=== PATIENT | female | born 2000 | race Caucasian/White ===

== ENCOUNTER 2022-09-06 10:02 | Emergency (ER) | payer MEDICAID, OTHER ==
--- NOTE | 2022-09-06 11:30 | NUR ---
NO ANSWER WHEN CALLED FROM [facility]
--- NOTE | 2022-09-06 12:12 | NUR ---
NO ANSWER WHEN CALLED FROM [facility]
--- NOTE | 2022-09-06 12:25 | NUR ---
PT. NOT FOUND IN LOBBY. CALLED PT.S NAME OUTSIDE ER. CHECKED BATHROOMS. PT. NOT FOUND. PT. LEFT WITHOUT BEING SEEN. NOTIFIED.
--- NOTE | 2022-09-06 12:43 | NUR ---
PT. NOT FOUND IN LOBBY. CALLED PT.S NAME OUTSIDE ER. CHECKED BATHROOMS. PT. NOT FOUND. PT. LEFT WITHOUT BEING SEEN. NOTIFIED.
== END 2022-09-06 11:10 | disposition left against medical advice (07) ==
LOC: MED 10:02
DX: M54.9 Dorsalgia, unspecified (principal); Z53.21 Procedure and treatment not carried out due to patient leaving prior to being seen by health care provider